=== PATIENT | female | born 1975 | race Caucasian/White ===

== ENCOUNTER 2017-05-09 07:24 | Outpatient (RCR) | payer BC ==
[~2017-05-09 07:24] MED LIST: ACE3 PO; CA C1TAB63 PO; CALC600T72 PO; CHOL100061 PO; FA/M1TAB27 PO; FOL1 PO; IBU200 PO; IBU600 PO; IBU800 PO; L-NO1TBD6 PO; LEV500 PO; LOR5/325 PO; MAGNESIUM PO; MULT-820 PO; ONDA4TAB PO; OXYC-865 PO; PER PO; PREN-67 PO
--- NOTE | 2017-05-09 10:14 | RADIOLOGY IMAGING REPORT ---
FACILITY: [facility] PATIENT NAME: Jaclyn Brown : 1975 MR: [id number] V: [id number] EXAM DATE: ORDERING PHYSICIAN: IFRAH OWEN TECHNOLOGIST: Location: [facility] Patient: Jaclyn Brown : 1975 Visit/Account:[id number] Date of Sevice: 05/09/2017 GALLBLADDER HISTORY: Abdominal pain, bloating COMPARISON: None. TECHNIQUE: Crocker scale, color and Duplex imaging of the right upper quadrant was performed. FINDINGS: Gallbladder: Unremarkable; no stones or sludge.. The gallbladder wall measures 3 mm. There was no so nographic Garza sign. Common duct: Normal, 4 mm diameter. Liver: The liver measures 12 cm. Normal in size and echotexture. No focal liver lesions are seen. Main portal vein is patent with hepatopedal flow. Liver surface is smooth. Pancreas: Partially obscured by bowel, visualized aspects unremarkable. Right Kidney: The right kidney length measures 8.8 cm. The right kidney is normal in size and echot exture. Upper abdominal aorta and IVC: Patent. Ascites: None visualized. IMPRESSION: 1. Unremarkable right upper quadrant ultrasound. Report Dictated By: Hamilton Schroeder MD at 05/09/2017 10:06 AM Report E-Signed By: Hamilton Schroeder MD at 05/09/2017 10:09 AM WSN:[email or web address]
[2017-05-10] MEDS ORDERED: WATER STERILE(*) 10 ML VIAL 10 ML ONE (10:57)
[2017-05-10] MEDS ORDERED: SINCALIDE 5 MCG VIAL INJ ONE (10:57)
--- NOTE | 2017-05-10 14:14 | RADIOLOGY IMAGING REPORT ---
FACILITY: [facility] PATIENT NAME: Jaclyn Brown : 1975 MR: [id number] V: [id number] EXAM DATE: ORDERING PHYSICIAN: IFRAH OWEN TECHNOLOGIST: [place] [facility] [place] : 1975 Visit/Account:[id number] Date of Sevice: 05/10/2017 EXAMINATION: Nuclear Medicine HIDA Scan with Kinevac Stimulation 05/10/2017 11:00 AM HISTORY: Abdominal pain/bloating TECHNIQUE: 5.6 mCi Tc99m Mebrofenin was injected intravenously. Multiple sequential gamma camera jacqui ges of the abdomen were obtained for 60 minutes. At that time, Kinevac was injected intravenously and an additional 30 minutes of gamma camera imaging data was acquired. A computer-generated region of i nterest was placed around the gallbladder and time-activity curve for the gallbladder was derived. Th e gallbladder ejection fraction was calculated. COMPARISON STUDIES: Abdominal ultrasound 05/09/2017 FINDINGS: Liver uptake and excretion: normal Time to appearance: Bile ducts: Within 5 minutes. Gallbladder: 11 minutes. Duodenum: 6 minutes. Duodenal- gastric reflux / extravasation: none Post IV Kinevac: excretion Patient symptoms: Patient reported nausea and epigastric burning sensation Ejection fraction = 18 %, (normal range > 35%). IMPRESSION: Low gallbladder ejection fraction with symptoms during gallbladder emptying. This pattern can be see n with chronic cholecystitis. Report Dictated By: Trevor Varner MD at 05/10/2017 2:06 PM Report E-Signed By: Trevor Varner MD at 05/10/2017 2:10 PM WSN:[email or web address]
== END 2017-05-10 18:00 | disposition home or self-care (01) ==
LOC: US 07:24 → EDSTATUS 14:18 → US 05-10 18:00
PROVIDERS: ATTEND Family Medicine
DX: K82.8 Other specified diseases of gallbladder (principal)
CPT/HCPCS: 76705; 78226; A4216; A9537; J2805

== ENCOUNTER 2017-08-02 01:17 | Day surgery (SDC) | payer BC ==
--- NOTE | 2017-07-27 15:22 | HISTORY AND PHYSICAL ---
DATE OF ADMISSION: August 02, 2017 CHIEF COMPLAINT Abdominal pain. 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 Pain is worse after eating foods like pizza. It is increasing in frequency and intensity. She had an ultrasound which was normal. She had a HIDA scan which revealed poor contractility of the gallbladder and reproduction of her symptoms. She is admitted at this time for cholecystectomy. ALLERGIES She has an allergy to PAXIL. CURRENT MEDICATIONS * Alprazolam 0.25 mg p.r.n. * Bupropion 300 mg daily. * Methylphenidate 10 mg daily. * Multivitamin. * Myrbetriq 25 mg daily. * (48) 540 mg daily. * Vitamin B12. * Vitamin D3. PAST MEDICAL HISTORY AND OPERATIONS * She had a metatarsal operation 2007. * Exploratory laparotomy in 2010. * Partial hysterectomy 2011. * Plantar fasciectomy in 2016. REVIEW OF SYSTEMS Significant for the history of the hemophilia. PHYSICAL EXAMINATION GENERAL: A 41-year-old female in no acute distress. LUNGS: Clear. HEART: Regular rhythm. ABDOMEN: Soft, nontender. IMPRESSION Acalculous cholecystitis. PLAN Laparoscopic cholecystectomy with intraoperative cholangiogram. It has been recommended that she get factor VIII preoperatively. We will administer that. MTDD
[2017-08-02] VITALS (10 sets, daily range): BP systolic 99–110; BP diastolic 48–66
[~2017-08-02] VITALS: Ht 160 cm; Wt 57.6 kg
[~2017-08-02 01:17] MED LIST changes: +ALPR-1 PO; +BUPR-149 PO; +METH-321 PO; +MIRA25TA PO; +MULT-1335 PO
[2017-08-02] MEDS ORDERED: ROCURONIUM BROM 10 MG/ML 5 ML ONE (01:18)
[2017-08-02] MEDS: NORMOSOL R SOLN(*) 1000 ML BAG 1,000 ML IV PRN ×2 (06:08→12:03)
[2017-08-02 06:12] LABS: PLATELET COUNT, AUTOMATED 176 K/uL (150-450)
[2017-08-02] MEDS ORDERED: MIDAZOLAM 2 MG/2 ML VIAL IVP PRN (06:30)
[2017-08-02] MEDS ORDERED: CEFOXITIN SOD IVPB ONE (06:30)
[2017-08-02] MEDS ORDERED: NS 0.9% IVPB ONE (06:30)
[2017-08-02] MEDS ORDERED: FAMOTIDINE 20 MG TAB PO ONE (06:30)
[2017-08-02] MEDS ORDERED: LIDOCAINE/SOD BICARB 8.4% SYR ID ONE (06:30)
[2017-08-02] MEDS ORDERED: ROPIVACAINE 0.2% 20 ML VIAL ONE (06:38)
[2017-08-02] MEDS ORDERED: IOPAMIDOL 61% 75 ML INFUS BTL 75 ML ONE (06:38)
--- NOTE | 2017-08-02 06:43 | Post Operative Progress Note ---
Post Operative Progress Note Date: August 02, 2017 Time: 08:14 Surgeon: agnieszka Anesthesia: dr shen Pre-Op Diagnosis: cholecystitis Post-Op Diagnosis: same Procedure(s): lap kimmy with ARIA Kilpatrick MD August 02, 2017 06:43
[2017-08-02] MEDS ORDERED: HYDR-4309 PO (06:44)
--- NOTE | 2017-08-02 06:46 | Short(Outpt) Discharge Summary ---
Discharge Summary Reason for Hosp/Final Diag: (1) Cholecystitis Hospital Course & Plan: lap kimmy with gram Departure Discharge to: Home Discharge Instructions Home Meds Active Scripts Hydrocodone Bit/Acetaminophen (NORCO 5-325 TABLET) 1 Each Tablet, 1 EACH PO Q4H Y for PAIN for 30 Days, TAB Prov:ARIA SHINE MD 08/02/17 Reported Medications Multivitamin With Minerals (MULTIPLE VITAMIN) 1 Each Tablet, 1 EACH PO DAILY, TAB 07/26/17 Bupropion Hcl (BUPROPION HCL) 100 Mg Tablet, 300 MG PO DAILY, TAB 07/26/17 Methylphenidate Hcl (METHYLPHENIDATE ER) 10 Mg Tablet.er, 10 MG PO QDAY 07/26/17 Alprazolam 0.25 Mg Tab (XANAX 0.25 MG TAB) 0.25 Mg Tablet, 1 TAB PO DIRECTED , TAB 07/26/17 Mirabegron (MYRBETRIQ) 25 Mg Tab.er.24h, 25 MG PO QDAY 07/26/17 Cholecalciferol (Vitamin D3) 1,000 Unit Tab.chew, 2000 UNIT PO QDAY, 0 Refills 04/15/10 Ca Carbonate/Vitamin D3/Vit K (Viactiv Tablet Chew) 1 Each Tab.chew, 1 EACH PO BID, 0 Refills 04/15/10 Discontinued Scripts Ondansetron (ZOFRAN ODT) 4 Mg Tab.rapdis, 4 MG PO Q4-6H for Nausea, #6 Prov:KAYY CASTANON MD 02/13/14 Oxycodone Hcl/Acetaminophen (PERCOCET 5-325 MG TABLET) 1 Each Tablet, 1 EACH PO Q4-6H Y for PAIN, #14 Prov:KAYY CASTANON MD 02/13/14 Diet: Regular Activity: As Tolerated Special Instructions: ice to incisions for 48 hours remove bandages and shower to see me in 14 days, call [phone] for apt ibuprofen q4 hours prn pain ARIA SHINE MD August 02, 2017 06:46
[2017-08-02] MEDS ORDERED: fentaNYL CITR 250 MCG/5 ML AMP ONE (07:08)
[2017-08-02] MEDS ORDERED: [UNRECOGNIZED DRUG - OTHER] IVP ONE (07:10)
[2017-08-02] MEDS ORDERED: ANTIHEMOPHILIC FACTOR IVP ONE (07:10)
[2017-08-02] MEDS ORDERED: PROPOFOL EMUL(*) 10MG/ML 20 ML 20 ML ONE (07:12)
[2017-08-02] MEDS ORDERED: LIDOCAINE MPF 1% 5 ML VIAL ONE (07:13)
[2017-08-02] MEDS ORDERED: DEXAMETHASONE SOD 4 MG/ML VIAL ONE (07:24)
[2017-08-02] MEDS ORDERED: ONDANSETRON 4 MG/2 ML VIAL ONE (07:49)
[2017-08-02] MEDS ORDERED: SUGAMMADEX SOD 200 MG/2 ML SDV ONE (07:54)
[2017-08-02] MEDS ORDERED: [UNRECOGNIZED DRUG - CODE] NS (08:36)
[2017-08-02] MEDS ORDERED: fentaNYL CITR 100 MCG/2 ML AMP ONE (08:38)
--- NOTE | 2017-08-02 08:42 | RADIOLOGY IMAGING REPORT ---
FACILITY: [facility] PATIENT NAME: Jaclyn Brown : 1975 MR: [id number] V: [id number] EXAM DATE: ORDERING PHYSICIAN: ARIA SHINE TECHNOLOGIST: Location: [facility] [place] Patient: Jaclyn Brown : 1975 Visit/Account:[id number] Date of Sevice: 08/02/2017 Exam type: CHOLANGIOGRAM OPERATIVE History: Intraoperative angiogram, cholecystitis Comparison: Ultrasound 05/09/2017. Findings: Fluoroscopy was provided for the purposes of intraoperative glandular. 10.6 seconds of fluoroscopy ti me was used for a total DAP of 0.41202 mGy/m2. The provided images demonstrate cannulation of the cystic duct and opacification of the proximal bili henrietta tree, common hepatic duct, common bile duct and duodenum. No filling defects are identified to miller ggest retained common bile duct stone. IMPRESSION: 1. Fluoroscopy was provided for the purposes of intraoperative angiogram. Report Dictated By: Hamilton Schroeder MD at 08/02/2017 8:36 AM Report E-Signed By: Hamilton Schroeder MD at 08/02/2017 8:37 AM WSN:[id number]
[2017-08-02] MEDS ORDERED: PROMETHAZINE 25 MG/ML 1 ML AMP ONE (10:32)
[2017-08-02] MEDS ORDERED: APAP/HYDROCODONE 325/5 TAB PO ONE (11:50)
--- NOTE | 2017-08-02 16:43 | OPERATIVE REPORT 1 ---
EVENT DATE: August 02, 2017 SURGEON: Asif Wade MD ANESTHESIOLOGIST: Ino Julien MD ANESTHESIA: General. PREOPERATIVE DIAGNOSIS Acalculous cholecystitis. POSTOPERATIVE DIAGNOSIS Acalculous cholecystitis. PROCEDURE PERFORMED Laparoscopic cholecystectomy with intraoperative cholangiogram. DESCRIPTION OF PROCEDURE The patient was placed in supine position and given general anesthetic. Her abdomen was prepped and draped in a sterile fashion. Dr. Julien administered the factor VIII. We then anesthetized the skin with 0.2% ropivacaine. A small incision was made above the umbilicus. A Veress needle was inserted. The abdomen was insufflated with CO2. A 5 mm port was placed under direct vision. We then placed two 5 mm in the right subcostal region and a 10 mm in the epigastrium. Gallbladder was grasped and raised cephalad. We dissected out the cystic duct-gallbladder junction, placed a clip there, opened the cystic duct, inserted a Taut catheter, obtained cholangiograms which were normal. Clip was removed. Taut catheter was removed. Cystic duct was triply clipped proximally and transected. Cystic artery was dissected out, doubly clipped distally, once proximally, and transected. One additional branch was doubly clipped and transected. We then used electrocautery to dissect the gallbladder from the bed of the liver. This dissection went very nicely. We had excellent hemostasis. Gallbladder was placed in an Endo Pouch, removed from the field. We suctioned, irrigated, and inspected for bleeding. We had perfect hemostasis. Ports were removed under direct vision. No bleeding was noted. Skin was closed with interrupted 4-0 Maxon. Steri-Strips and Airstrip were placed. [facility]
== END 2017-08-02 09:30 | disposition home or self-care (01) ==
LOC: OR 01:17
PROVIDERS: ATTEND Surgery
DX: K81.9 Cholecystitis, unspecified (principal)
CPT/HCPCS: 36415; 47563; 74300; 85025; 88304; J0694; J1100; J2001; J2405; J2550; J2704; J2795; J3010; J7050; Q9967

== ENCOUNTER → 2017-10-26 | Outpatient (CLI) | payer BC ==
[~2017-10-26] MED LIST changes: +HYDR-4309 PO; +[UNRECOGNIZED DRUG - CODE] NS
--- NOTE | 2017-10-26 16:08 | RADIOLOGY IMAGING REPORT ---
FACILITY: [facility] [place] PATIENT NAME: TELMA DOTY : [id number] MR: [id number] V: [id number] EXAM DATE: ORDERING PHYSICIAN: PAIGE MUNGUIA TECHNOLOGIST: Clair Garvin PROCEDURE:BILATERAL DIGITAL SCREENING MAMMOGRAM WITH CAD ASSISTED INTERPRETATION & 3D TOMOSYNTHESIS COMPARISON:Prior mammograms 10/05/16, 10/03/15. INDICATIONS:screening FINDINGS: Dense heterogeneous fibroglandular tissue is seen throughout the breasts. The parenchymal pattern has remained stable allowing for difference in mammographic technique & patient positioning. There is no evidence of malignant appearing mass, malignant appearing calcifications or other secondary sign of malignancy in either breast. DIAGNOSTIC CATEGORY 1--NEGATIVE. RECOMMENDATIONS: ROUTINE MAMMOGRAM AND CLINICAL EVALUATION. IMPRESSION: BIRADS 1: Negative. No significant abnormality is seen. Dictated by: Natalie Collier M.D. on 10/26/2017 at 10:02 Transcribed by: CRISTIANE on 10/26/2017 at 10:23 Approved by: Natalie Collier M.D. on 10/26/2017 at 16:07 [facility]
== END ==
LOC: MAMO 01:52
PROVIDERS: ATTEND Obstetrics & Gynecology
DX: Z12.31 Encounter for screening mammogram for malignant neoplasm of breast (principal)
CPT/HCPCS: 77063; 77067

== ENCOUNTER → 2017-11-04 | Outpatient (CLI) | payer BC ==
--- NOTE | 2017-11-04 12:55 | EKG ---
[place] [facility] [place]IENT NAME: TELMA DOTY : [id number] MR: [id number] V: [id number] EXAM DATE: ORDERING PHYSICIAN: IFRAH OWEN TECHNOLOGIST: TOBIAS Cabrales Reason : CP Blood Pressure : / mmHG Vent. Rate : 072 BPM Atrial Rate : 072 BPM P-R Int : 132 ms QRS Dur : 088 ms QT Int : 372 ms P-R-T Axes : 040 -47 038 degrees QTc Int : 407 ms Normal sinus rhythm with sinus arrhythmia T inversion consistent with septal ischemia vs normal variant R wave progression consistent old ant/sep PA vs lead placement No previous ECGs available Confirmed by CHIP GRAY ([id number]) on 11/04/2017 6:42:31 PM Referred By: Confirmed By:CIHP GRAY
== END ==
LOC: RESP 12:45
PROVIDERS: ATTEND Family Medicine
DX: I49.9 Cardiac arrhythmia, unspecified (principal); R94.31 Abnormal electrocardiogram [ECG] [EKG]
CPT/HCPCS: 93005

== ENCOUNTER → 2017-11-16 | Outpatient (CLI) | payer BC ==
--- NOTE | 2017-11-16 14:32 | RADIOLOGY IMAGING REPORT ---
FACILITY: [facility] PATIENT NAME: Jaclyn Brown : 1975 MR: [id number] V: [id number] EXAM DATE: ORDERING PHYSICIAN: IFRAH OWEN TECHNOLOGIST: Location: [facility] [place] Patient: Jaclyn Brown : 1975 Visit/Account:[id number] Date of Sevice: 11/16/2017 DEXA Scan Clinical history: Chest fractures, low calcium. Comparison: None available. LUMBAR SPINE: The bone mineral density (BMD) measured from L1-L4 correlates with a Z-score -1.6 and a T-score of -1 .9 which is osteopenia as defined by the World Health Organization. The corresponding risk of fractu re in the lumbar spine is 3-4 times increased compared with a young adult reference population. HIP: Bone mineral density (BMD) measured in the Left total hip region correlates with a Z-score 0.2 and a T-score of -0.2 which is Normal as defined by the World Health Organization. The corresponding risk of fracture in the hip is Not increased compared with a young adult reference population. T score l eft femoral neck -0.4 Bone mineral density (BMD) measured in the Femoral Neck region measures 0.987 g/cm2. Impression: 1. Lumbar spine: Osteopenia. 2. Left Hip: Normal. 3. Femoral Neck: Bone Mineral Density is 0.987 g/cm2 The next DEXA scan of this patient should include the following sites: L1-L4 and the left hip. FRAX? WHO Fracture Risk Assessment Tool link: <http://www.shef.ac.uk/FRAX/tool.jsp?locationValue=9> PLEASE NOTE: 1) The World Health Organization defines low BMD as follows: T-score Normal > -1 Osteopenia < -1 and > -2.5 Osteoporosis < -2.5 without fractures Established osteoporosis < -2.5 with fractures 2) In general, you may wish to consider: Diagnosis Treatment Follow-up DEXA Normal BMD Prevention 2-3 years Osteopenia Prevention/therapy 1-2 years Osteoporosis Therapy Yearly 3) Fracture risk estimated from the T-score is more accurate for vertebral fractures (often spontane ous) than for hip fractures. Report Dictated By: Natalie Collier MD at 11/16/2017 2:24 PM Report E-Signed By: Natalie Collier MD at 11/16/2017 2:25 PM WSN:[email or web address]
--- NOTE | 2017-11-16 14:35 | RADIOLOGY IMAGING REPORT ---
FACILITY: [facility] PATIENT NAME: Jaclyn Brown : 1975 MR: [id number] V: [id number] EXAM DATE: ORDERING PHYSICIAN: IFRAH OWEN TECHNOLOGIST: Location: [facility] [place] Patient: Jaclyn Brown : 1975 Visit/Account:[id number] Date of Sevice: 11/16/2017 TOE RIGHT FOOT GREAT TOE Given history: Pain. Low calcium. Question stress fracture. COMPARISON STUDIES: NONE FINDINGS: Three views right first toe Osseous structures: Intact without evidence of fracture or healing stress fracture. Joints: Joints of the first ray on the right foot appear normal without appreciable degenerative ch anges. Visualized joints along the second ray also appear normal. Soft tissues: normal . IMPRESSION: Negative exam. No evidence of fracture or arthropathy Report Dictated By: Vito Richmond MD at 11/16/2017 2:29 PM Report E-Signed By: Vito Richmond MD at 11/16/2017 2:31 PM WSN:[id number]
== END ==
LOC: RAD 13:36
PROVIDERS: ATTEND Family Medicine
DX: M79.674 Pain in right toe(s) (principal); E58 Dietary calcium deficiency; M85.80 Other specified disorders of bone density and structure, unspecified site
CPT/HCPCS: 77080

== ENCOUNTER 2018-01-04 10:12 | Emergency (ER) | payer BC ==
[2018-01-04] MEDS ORDERED: ASPIRIN 81 MG CHEW PO ONE (10:35)
[2018-01-04] MEDS ORDERED: NITROGLYCERIN 0.4 MG SUBL SL ONE (10:35)
--- NOTE | 2018-01-04 10:36 | ER Report ---
History and Physical Time Seen By MD: 10:27 Hx. of Stated Complaint: CHEST PAIN STARTED ABOUT 9AM, HISTORY OF ABNORMAL EKG IN OCT HPI/ROS CHIEF COMPLAINT: Chest pressure HISTORY OF PRESENT ILLNESS: Patient is a 42-year-old female significant past medical history of hemophilia a comes emergency Department today with complaint of chest pressure patient states of this pressure started late o'clock this morning she had she had this before back in October where she had a stress test which was normal returns today with a feeling a heaviness pressure work of breathing patient denies abdominal pain nausea vomiting since that is better when she rest works with worse with exertion describes as a parasternal heaviness with really no additional loosening relieving factors patient has no additional complaints at this time REVIEW OF SYSTEMS: Respiratory: No cough, no dyspnea. Cardiovascular: Chest pressure no palpitations Gastrointestinal: No vomiting, no abdominal pain. Musculoskeletal: No back pain. Remainder of the 14 system rev: Yes Allergies: Coded Allergies: paroxetine (Verified Allergy, Intermediate, SWELLING OF HANDS AND FEET, 01/04/18) Home Meds Active Scripts Hydrocodone Bit/Acetaminophen (NORCO 5-325 TABLET) 1 Each Tablet, 1 EACH PO Q4H PRN for PAIN for 30 Days, TAB Prov:ARIA SHINE MD 08/02/17 Reported Medications Desmopressin Acetate (STIMATE) 150 Mcg/0.1 Ml [place].pump, 2 SPRAY NS DAY 1&3 POST OP 08/02/17 Multivitamin With Minerals (MULTIPLE VITAMIN) 1 Each Tablet, 1 EACH PO DAILY, TAB 07/26/17 Bupropion Hcl (BUPROPION HCL) 100 Mg Tablet, 300 MG PO DAILY, TAB 07/26/17 Methylphenidate Hcl (METHYLPHENIDATE ER) 10 Mg Tablet.er, 10 MG PO QDAY 07/26/17 Alprazolam 0.25 Mg Tab (XANAX 0.25 MG TAB) 0.25 Mg Tablet, 1 TAB PO DIRECTED, TAB 07/26/17 Mirabegron (MYRBETRIQ) 25 Mg Tab.er.24h, 25 MG PO QDAY 07/26/17 Cholecalciferol (Vitamin D3) 1,000 Unit Tab.chew, 2000 UNIT PO QDAY, 0 Refills 04/15/10 Ca Carbonate/Vitamin D3/Vit K (Viactiv Tablet Chew) 1 Each Tab.chew, 1 EACH PO BID, 0 Refills 04/15/10 Reviewed Nurses Notes: Yes Old Medical Records Reviewed: Yes Hx Smoking: No Smoking Status: Never Smoker Hx Substance Use Disorder: No Constitutional Vital Sign - Last 24 Hours 01/04/18 01/04/18 01/04/18 01/04/18 10:12 10:17 10:20 10:27 Temp 98.1 Pulse ??? 106 106 Resp 16 28 B/P (MAP) 134/65 (88) 134/65 Pulse Ox 98 98 O2 Delivery Room Air 01/04/18 01/04/18 01/04/18 01/04/18 10:30 10:42 10:57 11:00 Pulse 104 ??? Resp 12 31 B/P (MAP) 122/77 (92) 117/71 (86) Pulse Ox 95 94 01/04/18 01/04/18 01/04/18 01/04/18 11:12 11:17 11:30 11:32 Pulse 102 105 ??? Resp 9 19 B/P (MAP) ???/??? (1665) Pulse Ox 94 91 01/04/18 01/04/18 11:47 11:50 Pulse ??? B/P (MAP) 114/59 (77) Physical Exam General Appearance: The patient is alert, has no immediate need for airway protection and no current signs of toxicity. [ ] Eyes: Pupils equal and round no injection. Respiratory: Chest is non tender, lungs are clear to auscultation. Cardiac: regular rate and rhythm [ ] Gastrointestinal: Abdomen is soft and non tender, no masses, bowel sounds normal. Musculoskeletal: Neck: Neck is supple and non tender. Extremities have full range of motion and are non tender. Skin: No rashes or lesions. [ ] DIFFERENTIAL DIAGNOSIS: After history and physical exam differential diagnosis was considered for myocardial ischemia pulmonary emboli infection anxiety Medical Decision Making Data Points Result Diagram: 01/04/18 1029 01/04/18 1029 Laboratory Hematology Test 01/04/18 10:29 Red Blood Count 5.14 M/uL (4.17-5.56) Mean Corpuscular Volume 92.8 fL (80.0-96.0) Mean Corpuscular Hemoglobin 31.7 pg (26.0-33.0) Mean Corpuscular Hemoglobin Concent 34.1 g/dL (32.0-36.0) Red Cell Distribution Width 12.4 % (11.5-14.5) Mean Platelet Volume 8.4 fL (7.2-11.1) Neutrophils (%) (Auto) 81.8 % (39.4-72.5) Lymphocytes (%) (Auto) 10.9 % (17.6-49.6) Monocytes (%) (Auto) 6.9 % (4.1-12.4) Eosinophils (%) (Auto) 0.1 % (0.4-6.7) Basophils (%) (Auto) 0.3 % (0.3-1.4) Nucleated RBC Relative Count (auto) 0.0 /100WBC Neutrophils # (Auto) 4.1 K/uL (2.0-7.4) Lymphocytes # (Auto) 0.5 K/uL (1.3-3.6) Monocytes # (Auto) 0.3 K/uL (0.3-1.0) Eosinophils # (Auto) 0.0 K/uL (0.0-0.5) Basophils # (Auto) 0.0 K/uL (0.0-0.1) Nucleated RBC Absolute Count (auto) 0.00 K/uL Peripheral Blood Smear No Y/N D-Dimer Quantitative (PE/DVT) 0.86 ug/ml (0-0.50) Sodium Level 139 mmol/L (137-145) Potassium Level 4.1 mmol/L (3.5-5.0) Chloride Level 103 mmol/L (98-107) Carbon Dioxide Level 25 mmol/L (22-31) Blood Urea Nitrogen 24 mg/dl (7-18) Creatinine 0.90 mg/dl (0.52-1.04) Glomerular Filtration Rate Calc > 60.0 Random Glucose 98 mg/dl (75-110) Calcium Level 9.2 mg/dl (8.4-10.2) Total Bilirubin 0.5 mg/dl (0.2-1.3) Aspartate Amino Transf (AST/SGOT) 23 U/L (0-35) Alanine Aminotransferase (ALT/SGPT) 31 U/L (0-56) Alkaline Phosphatase 66 U/L (0-126) Troponin I < 0.012 ng/ml Total Protein 7.7 g/dl (6.3-8.2) Albumin 4.3 g/dl (3.5-5.0) Chemistry Test 01/04/18 10:29 White Blood Count 5.0 k/uL (4.5-11.0) Red Blood Count 5.14 M/uL (4.17-5.56) Hemoglobin 16.3 g/dL (12.0-16.0) Hematocrit 47.7 % (34.0-47.0) Mean Corpuscular Volume 92.8 fL (80.0-96.0) Mean Corpuscular Hemoglobin 31.7 pg (26.0-33.0) Mean Corpuscular Hemoglobin Concent 34.1 g/dL (32.0-36.0) Red Cell Distribution Width 12.4 % (11.5-14.5) Platelet Count 177 K/uL (150-450) Mean Platelet Volume 8.4 fL (7.2-11.1) Neutrophils (%) (Auto) 81.8 % (39.4-72.5) Lymphocytes (%) (Auto) 10.9 % (17.6-49.6) Monocytes (%) (Auto) 6.9 % (4.1-12.4) Eosinophils (%) (Auto) 0.1 % (0.4-6.7) Basophils (%) (Auto) 0.3 % (0.3-1.4) Nucleated RBC Relative Count (auto) 0.0 /100WBC Neutrophils # (Auto) 4.1 K/uL (2.0-7.4) Lymphocytes # (Auto) 0.5 K/uL (1.3-3.6) Monocytes # (Auto) 0.3 K/uL (0.3-1.0) Eosinophils # (Auto) 0.0 K/uL (0.0-0.5) Basophils # (Auto) 0.0 K/uL (0.0-0.1) Nucleated RBC Absolute Count (auto) 0.00 K/uL Peripheral Blood Smear No Y/N D-Dimer Quantitative (PE/DVT) 0.86 ug/ml (0-0.50) Glomerular Filtration Rate Calc > 60.0 Calcium Level 9.2 mg/dl (8.4-10.2) Total Bilirubin 0.5 mg/dl (0.2-1.3) Aspartate Amino Transf (AST/SGOT) 23 U/L (0-35) Alanine Aminotransferase (ALT/SGPT) 31 U/L (0-56) Alkaline Phosphatase 66 U/L (0-126) Troponin I < 0.012 ng/ml Total Protein 7.7 g/dl (6.3-8.2) Albumin 4.3 g/dl (3.5-5.0) Coagulation Test 01/04/18 10:29 D-Dimer Quantitative (PE/DVT) 0.86 ug/ml ED Course/Re-evaluation ED Course 80 conical course 42-year-old female with chest discomfort describes dull heaviness cardiac markers are negative she's had a stress test and echocardiogram done less than 6 months ago x-ray blood work including d-dimer performed d-dimer was mildly elevated CT angiogram showed some increased thymic tissue otherwise unremarkable no pulmonary emboli diagnosis chest pain unknown etiology Decision to Disposition Date: Jan 04, 2018 Decision to Disposition Time: 12:30 Depart Departure Latest Vital Signs Vital Signs Date Time Temp Pulse Resp B/P (MAP) Pulse Ox O2 Delivery O2 Flow Rate FiO2 01/04/18 11:50 114/59 (77) 01/04/18 11:47 ??? 01/04/18 11:17 19 91 01/04/18 10:20 98.1 Room Air Impression: Primary Impression: Chest pain Condition: Improved Disposition: HOME OR SELF-CARE Referrals: IFRAH OWEN DO (PCP) 5 Days Patient Instructions: Chest Pain (DC) MARIA ANTONIA ONEIL MD Jan 04, 2018 10:36
[2018-01-04 10:45] LABS: PLATELET COUNT, AUTOMATED 177 K/uL (150-450)
--- NOTE | 2018-01-04 10:45 | EKG ---
FACILITY: [facility] PATIENT NAME: TELMA DOTY : [id number] MR: [id number] V: [id number] EXAM DATE: ORDERING PHYSICIAN: MARIA ANTONIA ONEIL TECHNOLOGIST: TOBIAS Cabrales Reason : cp Blood Pressure : / mmHG Vent. Rate : 097 BPM Atrial Rate : 097 BPM P-R Int : 128 ms QRS Dur : 096 ms QT Int : 354 ms P-R-T Axes : 040 -37 042 degrees QTc Int : 449 ms Sinus arrhythmia Left axis deviation Decreased R wave progression anteriorly Abnormal ECG Confirmed by SUAD VARGAS ([id number]) on 01/04/2018 3:53:40 PM Referred By: CLARICE Confirmed By:SUAD VARGAS
--- NOTE | 2018-01-04 11:31 | RADIOLOGY IMAGING REPORT ---
FACILITY: [facility] PATIENT NAME: Jaclyn Brown : 1975 MR: [id number] V: [id number] EXAM DATE: ORDERING PHYSICIAN: MARIA ANTONIA ONEIL TECHNOLOGIST: Location: [facility] Patient: Jaclyn Brown : 1975 Visit/Account:[id number] Date of Sevice: 01/04/2018 Exam type: CHEST PA AND LAT History: Chest pain, left-sided Comparison: None. Findings: The lungs are free of acute effusions infiltrates or edema. There is no evidence of a pneumothorax o r pneumomediastinum. The cardiac silhouette is normal in size. The trachea is in midline. There is a S-shaped scoliosis of the thoracolumbar spine. Surgical clips are present in the right upper quad rant abdomen IMPRESSION: 1. No acute cardiac pulmonary process is seen Report Dictated By: Natalie Collier MD at 01/04/2018 11:25 AM Report E-Signed By: Natalie Collier MD at 01/04/2018 11:26 AM WSN:[email or web address]
[2018-01-04] MEDS ORDERED: NS(*) 0.9% 50 ML BAG 50 ML ONE (11:46)
[2018-01-04] MEDS ORDERED: IOPAMIDOL 76% 75 ML INFUS BTL 75 ML ONE (11:46)
--- NOTE | 2018-01-04 12:17 | RADIOLOGY IMAGING REPORT ---
FACILITY: [facility] [place] PATIENT NAME: Jaclyn Brown : 1975 MR: [id number] V: [id number] EXAM DATE: ORDERING PHYSICIAN: MARIA ANTONIA ONEIL TECHNOLOGIST: Location: [facility] Patient: Jaclyn Brown : 1975 Visit/Account:[id number] Date of Sevice: 01/04/2018 CTA CHEST WW/O CNTR (PULM ANG) HISTORY: Chest pain TECHNIQUE: CTA chest with intravenous contrast attention to pulmonary arteries. Sagittal, coronal a nd slab 3D MIP coronal reconstructed images were also created for further evaluation and interpretati on. One of the following dose optimization techniques was utilized in the performance of this exam: Autom ated exposure control; adjustment of the mA and/or kV according to the patient's size; or use of an i terative reconstruction technique. Specific details can be referenced in the facility's radiology CT exam operational policy. CONTRAST: 75 mL Isovue-370. COMPARISON: None. FINDINGS: Heart/vessels: Satisfactory opacification of the pulmonary arteries without visualized pulmonary emb olus. Incidental note of a normal anatomic variant branch configuration of the aortic arch with an a berrant right subclavian artery traversing posterior to the esophagus. Mediastinum: Small amount of wedge-shaped nonmasslike soft tissue within the anterior mediastinum wh ich is likely related to residual/rebound thymic tissue. Lymph nodes: Negative. Lungs/pleura: Negative. Visualized upper abdomen: Negative. Bones/soft tissues: Moderate dextro scoliosis of the thoracic spine. Degenerative disc disease note d at T12-L1. IMPRESSION: 1. No acute findings. Negative for pulmonary embolus. 2. Incidental/chronic findings, as above. Report Dictated By: Marques Smith MD at 01/04/2018 12:10 PM Report E-Signed By: Marques Smith MD at 01/04/2018 12:13 PM WSN:[id number]
[2018-01-04 12:30] VITALS: BP 111/66
== END 2018-01-04 12:37 | disposition home or self-care (01) ==
LOC: ER 10:31
DX: R07.89 Other chest pain (principal); I49.9 Cardiac arrhythmia, unspecified; R94.31 Abnormal electrocardiogram [ECG] [EKG]
CPT/HCPCS: 71046; 71275; 84484; 85025; 85379; 93005; 99284; J7050; Q9967; 82040; 82247; 82310; 82374; 82435; 82565; 82947; 84075; 84132; 84155; 84295; 84450; 84460; 84520

== ENCOUNTER → 2018-11-02 | Outpatient (CLI) | payer BC ==
[~2018-11-02] MED LIST changes: +GADOBENATE 529MG/1ML 15ML VIAL IVP ONE; -HYDR-4309 PO; +HYDR-653 PO
--- NOTE | 2018-11-02 14:17 | RADIOLOGY IMAGING REPORT ---
FACILITY: [facility] PATIENT NAME: Jaclyn Brown : 1975 MR: [id number] V: [id number] EXAM DATE: ORDERING PHYSICIAN: IFRAH OWEN TECHNOLOGIST: Location: [facility] Patient: Jaclyn Brown : 1975 Visit/Account:[id number] Date of Sevice: 11/02/2018 EXAMINATION: MRI Brain without intravenous contrast MRI Brain with intravenous contrast HISTORY: Hemiparesis. Intermittent tingling and numbness. COMPARISON: Brain MRI dated 05/30/2014. TECHNIQUE: Multi-planar, multi-sequence brain MRI was performed before and after IV gadolinium. CONTRAST: 12 mL of IV MultiHance FINDINGS: Brain volume: Normal. Sagittal midline structures: Negative. Ventricles: Negative. Acute ischemic changes: None. Hemorrhage: None. Masses / edema: None. Enhancement: Negative. Crocker-white: Negative. White matter: Stable nonspecific punctate white matter lesion in the right anterior frontal lobe (se catherine 8, image 14). Vessels: Negative. Extra-axial: Negative. Calvarium / scalp: Negative. Skull base: Negative. Visualized sinuses / orbits: Negative. Visualized upper neck: Negative. IMPRESSION: 1. Stable nonspecific punctate white matter lesion in the right anterior frontal lobe (series 8, imag e 14). 2. Otherwise normal brain MRI without and with IV contrast. Report Dictated By: Junior Mendez MD at 11/02/2018 2:00 PM Report E-Signed By: Junior Mendez MD at 11/02/2018 2:07 PM WSN:[id number]
== END ==
LOC: MRI 00:46
PROVIDERS: ATTEND Family Medicine
DX: R94.02 Abnormal brain scan (principal); G81.90 Hemiplegia, unspecified affecting unspecified side
CPT/HCPCS: 70553; A9577